=== PATIENT | female | born 1980 | race Two or more races ===

== ENCOUNTER 2022-07-05 16:51 | Emergency (ER) | payer MEDICAID, OTHER ==
[~2022-07-05] VITALS: Ht 167.6 cm; Wt 109.0 kg
[2022-07-05 18:40] VITALS: BP 168/88
[2022-07-05 19:22] LABS: Basophils # (auto) 0.1 10 ^3/uL (0-0.2); Basophils % (auto) 0.8 % (0.0-2.0); Eosinophils # (auto) 0.2 10 ^3/uL (0-0.8); Eosinophils % (auto) 1.5 % (0.0-7.0); Hematocrit 42.9 % (36.0-46.0); Hemoglobin 14.1 g/dL (12.2-16.2); Lymphocytes # (auto) 3.6 10 ^3/uL (0.4-5.4); Lymphocytes % (auto) 34.7 % (10.0-50.0); Mean Corpuscular Hemoglobin 27.8 pg (28.0-32.0); Mean Corpuscular Hgb Conc. 32.8 g/dL (32.0-36.0); Mean Corpuscular Volume 84.9 fL (80.0-100.0); Monocytes # (auto) 0.5 10 ^3/uL (0-1.3); Monocytes % (auto) 5.1 % (0.0-12.0); Neutrophils % (auto) 57.9 % (37.0-80.0); Red Blood Cells 5.06 10^6/uL (4.0-5.20); Red Cell Distribution Width 14.3 % (11.8-14.3); White Blood Cell 10.3 10^3/uL (4.4-10.8)
[2022-07-05 19:54] LABS: Albumin 4.2 g/dL (3.4-5.0); BUN/Creatinine Ratio 15.6; Bilirubin, Total 0.9 mg/dL (0.2-1.0); Calcium 8.9 mg/dL (8.5-10.1); Total Protein 7.9 g/dL (6.4-8.2)
[2022-07-05 20:57] LABS: Urine Bacteria NONE SEEN /hpf (None Seen); Urine Blood Negative /uL (Negative); Urine Mucus FEW (None Seen); Urine WBC 1 /hpf (0 - 5)
== END 2022-07-05 23:55 | disposition home or self-care (01) ==
LOC: ER 16:51
DX: R53.1 Weakness (principal); R41.3 Other amnesia; Z88.0 Allergy status to penicillin
CPT/HCPCS: 36415; 70450; 80053; 81001; 83605; 84484; 85025; 93005

== ENCOUNTER 2022-09-02 17:17 | Emergency (ER) | payer MEDICAID ==
[~2022-09-02] VITALS: Ht 167.6 cm; Wt 108.1 kg
[2022-09-02 18:54] VITALS: BP 160/91
[2022-09-02] MEDS ORDERED: IBUP800T27 PO (18:54)
[2022-09-02] MEDS ORDERED: KETOROLAC TROMETH 60MG/2ML VIAL IM ONE (19:00)
== END 2022-09-02 19:09 | disposition home or self-care (01) ==
LOC: ER 17:17
DX: S93.402A Sprain of unspecified ligament of left ankle, initial encounter (principal); E78.5 Hyperlipidemia, unspecified; Z88.0 Allergy status to penicillin; X50.1XXA Overexertion from prolonged static or awkward postures, initial encounter; Y93.89 Activity, other specified; Y92.89 Other specified places as the place of occurrence of the external cause; Y99.8 Other external cause status
CPT/HCPCS: 73610; 96372; 99283; J1885

== ENCOUNTER 2023-03-29 11:02 | Emergency (ER) | payer MEDICAID ==
[~2023-03-29] VITALS: Ht 170.2 cm; Wt 104.5 kg
[~2023-03-29 11:02] MED LIST: IBUP-1456 PO
[2023-03-29 11:55] VITALS: BP 140/93; PULSE 76; RESP 18; O2SAT 99
[2023-03-29 12:31] LABS: BUN/Creatinine Ratio 17.7 (10.0-20.0); Calcium 8.7 mg/dL (8.5-10.1); Potassium 3.7 mmol/L (3.5-5.1)
[2023-03-29 12:34] LABS: Bilirubin, Total 1.2 mg/dL (0.2-1.0); Total Protein 8.2 g/dL (6.4-8.2)
[2023-03-29 12:36] LABS: Basophils # (auto) 0.1 10 ^3/uL (0-0.2); Basophils % (auto) 0.7 % (0.0-2.0); Eosinophils # (auto) 0.2 10 ^3/uL (0-0.8); Eosinophils % (auto) 2.1 % (0.0-7.0); Hematocrit 41.7 % (36.0-46.0); Hemoglobin 13.9 g/dL (12.2-16.2); Lymphocytes # (auto) 2.7 10 ^3/uL (0.4-5.4); Lymphocytes % (auto) 32.5 % (10.0-50.0); Mean Corpuscular Hemoglobin 28.9 pg (28.0-32.0); Mean Corpuscular Hgb Conc. 33.4 g/dL (32.0-36.0); Mean Corpuscular Volume 86.5 fL (80.0-100.0); Monocytes # (auto) 0.5 10 ^3/uL (0-1.3); Neutrophils # (auto) 4.9 10 ^3/uL (1.6-8.6); Neutrophils % (auto) 58.7 % (37.0-80.0); Nucleated Red Blood Cells % 0.1 %; Red Blood Cells 4.82 10^6/uL (4.0-5.20); White Blood Cell 8.4 10^3/uL (4.4-10.8)
[2023-03-29 12:54] LABS: Urine Bacteria NONE SEEN /hpf (None Seen); Urine Blood Negative /uL (Negative); Urine Clarity Clear (Clear); Urine Color Yellow (Yellow); Urine Mucus FEW (None Seen); Urine Protein, UAD TRACE (Negative); Urine Specific Gravity 1.023 (1.001-1.035); Urine Urobilinogen Normal (Negative); Urine WBC 1 /hpf (0 - 5); Urine pH 5.5 (5.0-8.0)
== END 2023-03-29 13:49 | disposition home or self-care (01) ==
LOC: ER 11:02
DX: R10.2 Pelvic and perineal pain (principal); E78.5 Hyperlipidemia, unspecified; Z79.1 Long term (current) use of non-steroidal anti-inflammatories (NSAID); Z88.0 Allergy status to penicillin
CPT/HCPCS: 36415; 76830; 76856; 80053; 81001; 85025

== ENCOUNTER 2024-06-11 20:19 | Emergency (ER) | payer MEDICAID ==
[~2024-06-11] VITALS: Ht 167.6 cm; Wt 108.0 kg
[~2024-06-11 20:19] MED LIST changes: +HYDR-4798 PO; +IBUP-1455 PO
[2024-06-11 22:51] VITALS: BP 174/90; PULSE 88; RESP 18; TEMP 97.7; O2SAT 98
[2024-06-11] MEDS: KETOROLAC TROMETH 60MG/2ML VIAL IM ONE (23:17)
[2024-06-11] MEDS ORDERED: ACE3T PO (23:20)
[2024-06-11] MEDS ORDERED: CYCL-837 PO (23:20)
== END 2024-06-11 23:41 | disposition home or self-care (01) ==
LOC: ER 20:19
DX: S39.012A Strain of muscle, fascia and tendon of lower back, initial encounter (principal); E78.5 Hyperlipidemia, unspecified; Z88.0 Allergy status to penicillin; Z98.51 Tubal ligation status; X58.XXXA Exposure to other specified factors, initial encounter; Y93.89 Activity, other specified; Y92.89 Other specified places as the place of occurrence of the external cause; Y99.8 Other external cause status
CPT/HCPCS: 96372; 99283; J1885